=== PATIENT | female | born 1985 | race Caucasian/White ===

== ENCOUNTER 2018-02-22 16:04 | Emergency (ER) | END 2018-02-22 17:48 | disposition left against medical advice (07) ==

== ENCOUNTER 2018-03-08 08:46 | Emergency (ER) | END 2018-03-08 10:16 | disposition home or self-care (01) ==

== ENCOUNTER 2018-09-06 03:23 | Emergency (ER) | payer SELFPAY ==
[~2018-09-06] VITALS: Wt 58.7 kg
[~2018-09-06 03:23] MED LIST: BEN50 PO; DIPH25CA6 PO; FER325 PO; FOLI-49 PO; HYDR4TAB PO; HYDR500C3 PO; ONDA4TAB8 PO; QUET400T PO; SERT-165 PO; SERT50TA6 PO; TRAZ-111 PO
[2018-09-06] MEDS ORDERED: SOD CHLORIDE 0.9% 1,000 ML IV STA (03:35)
[2018-09-06] MEDS ORDERED: HYDROmorphONE 1 MG/ML SYG IV STA (03:35)
[2018-09-06] MEDS ORDERED: ONDANSETRON 4 MG INJ IV STA (03:35)
[2018-09-06] MEDS ORDERED: ONDANSETRON (ODT) 4 MG TAB ODT ONE (03:46)
[2018-09-06] MEDS ORDERED: DIPHENHYDRAMINE 50 MG INJ IV ONE (04:00)
[2018-09-06] MEDS ORDERED: HYDROmorphONE 2 MG/ML SYG IM STA (04:36)
[2018-09-06 06:08] VITALS: BP 123/97; PULSE 92; RESP 18
--- NOTE | 2018-10-16 01:31 | ERD ---
ER Documentation Chief Complaint Chief Complaint SICKLE CELL PAIN X'S 3 DAYS HPI This is a 33-with sickle cell pain for the past 3 days. Pain is mild to moderate intensity. No chest pain. No fevers no chills. No other current complaints. ROS All systems reviewed and are negative except as per history of present illness. Medications Home Meds Active Scripts Promethazine Hcl* (Phenergan*) 25 Mg Tablet, 25 MG PO Q6 PRN for NAUSEA AND/OR VOMITING, #12 TAB Prov:IRENE NICOLAS DO 10/14/18 Ondansetron Hcl* (Zofran*) 4 Mg Tablet, 4 MG PO Q8H PRN for NAUSEA AND/OR VOMITING, #30 TAB Prov:LOUIS JOSEPH MD 07/30/18 Reported Medications Quetiapine Fumarate* (Seroquel*) 400 Mg Tablet, 400 MG PO BID, TAB 06/22/18 Sertraline Hcl* (Sertraline Hcl*) 100 Mg Tablet, 100 MG PO QAM, #30 TAB 06/19/18 Sertraline Hcl* (Sertraline Hcl*) 50 Mg Tablet, 50 MG PO QPM, #30 TAB 06/19/18 Hydromorphone Hcl* (Hydromorphone Hcl*) 4 Mg Tablet, 4 MG PO Q4H PRN for PAIN, TAB 06/19/18 Diphenhydramine Hcl* (Benadryl*) 50 Mg Cap, 50 MG PO Q6 PRN for ITCHING, CAP 06/19/18 Folic Acid* (Folic Acid*) 1 Mg Tablet, 1 MG PO DAILY, TAB 06/19/18 Trazodone Hcl* (Trazodone Hcl*) 50 Mg Tablet, 50 MG PO QHS, #60 TAB 03/08/18 Quetiapine Fumarate* (Seroquel*) 400 Mg Tablet, 400 MG PO BID, TAB 03/08/18 Diphenhydramine Hcl* (Diphenhydramine Hcl*) 25 Mg Capsule, 25 MG PO QHS PRN for SLEEP, CAP 03/08/18 Ferrous Sulfate* (Ferrous Sulfate*) 325 Mg Tabec, 325 MG PO DAILY, TAB 03/08/18 Folic Acid* (Folic Acid*) 1 Mg Tablet, 1 MG PO DAILY, TAB 03/08/18 Hydroxyurea* (Hydroxyurea*) 500 Mg Capsule, 500 MG PO BID, CAP 03/08/18 Allergies Allergies: Coded Allergies: ketorolac (Verified Allergy, Unknown, 09/16/18) metoclopramide (Verified Allergy, Unknown, 09/16/18) morphine (Verified Allergy, Unknown, 09/16/18) prochlorperazine (Verified Allergy, Unknown, 09/16/18) haloperidol (Unverified Adverse Reaction, Unknown, 09/16/18) PMhx/Soc History of Surgery: Yes (HX APPENDECTOMY,OVARIAN CYST SX,PARTIAL SPLEENECTOMY) Anesthesia Reaction: No Hx Neurological Disorder: No Hx Respiratory Disorders: No Hx Cardiac Disorders: No Hx Psychiatric Problems: No Hx Miscellaneous Medical Probl: Yes (SICKLE CELL ) Hx Alcohol Use: No Hx Substance Use: No Hx Tobacco Use: Yes Smoking Status: Current some day smoker Physical Exam Physical Exam Const: No acute distress Head: Atraumatic Eyes: Normal Conjunctiva ENT: Normal External Ears, Nose and Mouth. Neck: Full range of motion. No meningismus. Resp: Clear to auscultation bilaterally Cardio: Regular rate and rhythm, no murmurs Abd: Soft, non tender, non distended. Normal bowel sounds Skin: No petechiae or rashes Back: No midline or flank tenderness Ext: No cyanosis, or edema Neur: Awake and alert Psych: Normal Mood and Affect Results 24 hrs Laboratory Tests Test 09/06/18 04:08 White Blood Count 6.2 10^3/ul Red Blood Count 3.73 10^6/ul Hemoglobin 8.2 g/dl Hematocrit 27.9 % Mean Corpuscular Volume 74.8 fl Mean Corpuscular Hemoglobin 22.0 pg Mean Corpuscular Hemoglobin Concent 29.4 g/dl Red Cell Distribution Width 16.1 % Platelet Count 314 10^3/UL Mean Platelet Volume 10.0 fl Immature Granulocytes % 0.200 % Neutrophils % 47.3 % Lymphocytes % 43.1 % Monocytes % 5.9 % Eosinophils % 2.9 % Basophils % 0.6 % Nucleated Red Blood Cells % 0.0 /100WBC Immature Granulocytes # 0.010 10^3/ul Neutrophils # 2.9 10^3/ul Lymphocytes # 2.7 10^3/ul Monocytes # 0.4 10^3/ul Eosinophils # 0.2 10^3/ul Basophils # 0.0 10^3/ul Nucleated Red Blood Cells # 0.0 10^3/ul Absolute Reticulocyte Count 0.051 X10^6 Percent Reticulocyte Count 1.4 % Sodium Level 143 mmol/L Potassium Level 4.1 mmol/L Chloride Level 108 mmol/L Carbon Dioxide Level 25 mmol/L Anion Gap 10 Blood Urea Nitrogen 16 mg/dl Creatinine 0.84 mg/dl Est Glomerular Filtrat Rate mL/min > 60 mL/min Glucose Level 91 mg/dl Calcium Level 9.2 mg/dl Total Bilirubin 0.3 mg/dl Direct Bilirubin 0.00 mg/dl Indirect Bilirubin 0.3 mg/dl Aspartate Amino Transf (AST/SGOT) 44 IU/L Alanine Aminotransferase (ALT/SGPT) 16 IU/L Alkaline Phosphatase 85 IU/L Total Protein 7.5 g/dl Albumin 4.2 g/dl Globulin 3.30 g/dl Albumin/Globulin Ratio 1.27 Lipase 147 U/L Current Medications Medications Dose Sig/Javon Start Time Status Last (Trade) Ordered Route PRN Stop Time Admin Dose Reason Admin Sodium 1,000 ml @ Q1H STAT 09/06/18 DC Chloride 1,000 mls/hr IV 03:35 09/06/18 04:34 1 mg ONCE STAT 09/06/18 DC 09/06/18 Hydromorphone IV 03:35 03:49 HCl 09/06/18 03:38 (Dilaudid) Ondansetron 4 mg ONCE STAT 09/06/18 DC 09/06/18 HCl (Zofran IV 03:35 03:49 Inj) 09/06/18 03:38 25 mg ONCE ONCE 09/06/18 DC 09/06/18 Diphenhydrami IV 04:00 03:49 ne HCl 09/06/18 04:01 (Benadryl) Ondansetron 4 mg STK-MED 09/06/18 DC HCl (Zofran ONCE ODT 03:46 Odt) 09/06/18 03:47 2 mg ONCE STAT 09/06/18 DC 09/06/18 Hydromorphone IM 04:36 04:47 HCl 09/06/18 04:37 (Dilaudid) Procedures/MDM Medical decision make: 33 female reactivation of sickle cell pain. Patient has been treated with pain medication and fluids here. Good resolution of symptomology. Patient will be discharged home. Departure Diagnosis: Primary Impression: Pain Additional Impression: Sickle cell pain crisis Condition: Stable Patient Instructions: Sickle Cell Pain Crisis MICHELLE SWARTZ Oct 16, 2018 01:31
== END 2018-09-06 06:30 | disposition home or self-care (01) ==
LOC: EDBD → MERGE 03:23 → E/R 03:23
DX: D57.00 Hb-SS disease with crisis, unspecified (principal); F17.210 Nicotine dependence, cigarettes, uncomplicated
CPT/HCPCS: 36415; 80053; 83690; 85025; 85045; 96372; 96374; 96375; 99284; J1170; J1200; J2405; J7030

== ENCOUNTER 2018-09-16 05:16 | Emergency (ER) | payer SELFPAY ==
[~2018-09-16] VITALS: Ht 157.5 cm; Wt 59.1 kg
[2018-09-16 05:18] VITALS: Ht 157.5 cm; Wt 59.1 kg
[2018-09-16] MEDS ORDERED: ONDANSETRON (ODT) 4 MG TAB ODT STA ×2 (06:14→08:02)
[2018-09-16] MEDS ORDERED: HYDROmorphONE 2 MG/ML SYG IM STA ×2 (06:14→08:02)
[2018-09-16] MEDS ORDERED: DIPHENHYDRAMINE 50 MG INJ IM ONE ×2 (06:30→08:30)
--- NOTE | 2018-09-16 07:15 | ERD ---
ER Documentation Chief Complaint Chief Complaint Pt reports she is in Sickle Cell Crisis x 1 week, worse last 2 days HPI This is a 31-year-old female with a known history of sickle cell disease. The patient indicates for the past 48 hours she is been having diffuse joint pain mostly in her hips lower and upper extremities. She denies any chest pain. She has no shortness of breath at rest or exertion. The patient indicates that her sickle cell crisis often gets worsened with cold weather. Given that it started raining this morning she stated she is experiencing a sickle cell flareup. She had no fevers or shaking or chills. She denies any nausea or vomiting. She takes oral Dilaudid but indicated this did not improve her pain. ROS All systems reviewed and are negative except as per history of present illness. Medications Home Meds Active Scripts Ondansetron Hcl* (Zofran*) 4 Mg Tablet, 4 MG PO Q8H PRN for NAUSEA AND/OR VOMITING, #30 TAB Prov:LOUIS JOSEPH MD 07/30/18 Reported Medications Quetiapine Fumarate* (Seroquel*) 400 Mg Tablet, 400 MG PO BID, TAB 06/22/18 Sertraline Hcl* (Sertraline Hcl*) 100 Mg Tablet, 100 MG PO QAM, #30 TAB 06/19/18 Sertraline Hcl* (Sertraline Hcl*) 50 Mg Tablet, 50 MG PO QPM, #30 TAB 06/19/18 Hydromorphone Hcl* (Hydromorphone Hcl*) 4 Mg Tablet, 4 MG PO Q4H PRN for PAIN, TAB 06/19/18 Diphenhydramine Hcl* (Benadryl*) 50 Mg Cap, 50 MG PO Q6 PRN for ITCHING, CAP 06/19/18 Folic Acid* (Folic Acid*) 1 Mg Tablet, 1 MG PO DAILY, TAB 06/19/18 Trazodone Hcl* (Trazodone Hcl*) 50 Mg Tablet, 50 MG PO QHS, #60 TAB 03/08/18 Quetiapine Fumarate* (Seroquel*) 400 Mg Tablet, 400 MG PO BID, TAB 03/08/18 Diphenhydramine Hcl* (Diphenhydramine Hcl*) 25 Mg Capsule, 25 MG PO QHS PRN for SLEEP, CAP 11/15/18 Ferrous Sulfate* (Ferrous Sulfate*) 325 Mg Tabec, 325 MG PO DAILY, TAB 03/08/18 Folic Acid* (Folic Acid*) 1 Mg Tablet, 1 MG PO DAILY, TAB 03/08/18 Hydroxyurea* (Hydroxyurea*) 500 Mg Capsule, 500 MG PO BID, CAP 03/08/18 Allergies Allergies: Coded Allergies: ketorolac (Verified Allergy, Unknown, 09/16/18) metoclopramide (Verified Allergy, Unknown, 09/16/18) morphine (Verified Allergy, Unknown, 09/16/18) prochlorperazine (Verified Allergy, Unknown, 09/16/18) haloperidol (Unverified Adverse Reaction, Unknown, 09/16/18) PMhx/Soc History of Surgery: Yes (HX APPENDECTOMY,OVARIAN CYST SX,PARTIAL SPLEENECTOMY) Anesthesia Reaction: No Hx Neurological Disorder: No Hx Respiratory Disorders: No Hx Cardiac Disorders: No Hx Psychiatric Problems: No Hx Miscellaneous Medical Probl: Yes (SICKLE CELL ) Hx Alcohol Use: No Hx Substance Use: No Hx Tobacco Use: Yes Smoking Status: Never smoker Physical Exam Vitals Vital Signs Date Temp Pulse Resp B/P (MAP) Pulse Ox O2 O2 Flow FiO2 Time Delivery Rate 09/16/18 98.6 72 16 132/78 100 Room Air 06:15 (96) 09/16/18 98.6 77 16 138/85 100 05:18 (102) Physical Exam Constitutional:Well-developed. Well-nourished. HEENT:Normocephalic. Atraumatic.Pupils were equal round reactive to light. Moist mucous membranes.No tonsillar exudates. Foreign bodies present in both the left and right ear and therefore unable to visualize tympanic membrane Neck: No nuchal rigidity. No lymphadenopathy. No posterior cervical spine tenderness or step-offs. Respiratory: Not using accessory muscles of respiration.Lungs were clear to auscultation bilaterally. No rhonchi. No rales. No wheezing. Cardiovascular: Regular rate regular rhythm.No murmurs. No rubs were appreciated .S1, S2 normal. Distal pulses are palpable 2+ bilaterally. GI: Abdomen was soft. Nontender. Non Distended. No pulsatile abdominal masses or bruits. No rebound. No guarding. Bowel sounds were present and normal. Muscle skeletal: Full range of motion of both the upper and lower extremities bilaterally.Normal muscle tone.No assymetrical calf tenderness or swelling. Skin: No petechia, no purpura. No lesions on the palms or the soles of the feet. No maculopapular rash. NEURO: Patient was alert, awake, orientated x3.No facial droop. Gait observed and normal with no ataxia.Speech had regular rate and rhythm. No focal neurological deficits. Result Diagram: 09/16/18 0651 09/16/18 0651 Results 24 hrs Laboratory Tests Test 09/16/18 06:51 White Blood Count 5.3 10^3/ul Red Blood Count 3.52 10^6/ul Hemoglobin 7.7 g/dl Hematocrit 26.5 % Mean Corpuscular Volume 75.3 fl Mean Corpuscular Hemoglobin 21.9 pg Mean Corpuscular Hemoglobin Concent 29.1 g/dl Red Cell Distribution Width 16.1 % Platelet Count 301 10^3/UL Mean Platelet Volume 10.1 fl Immature Granulocytes % 0.000 % Neutrophils % 35.5 % Lymphocytes % 53.9 % Monocytes % 7.4 % Eosinophils % 2.8 % Basophils % 0.4 % Nucleated Red Blood Cells % 0.0 /100WBC Immature Granulocytes # 0.000 10^3/ul Neutrophils # 1.9 10^3/ul Lymphocytes # 2.8 10^3/ul Monocytes # 0.4 10^3/ul Eosinophils # 0.2 10^3/ul Basophils # 0.0 10^3/ul Nucleated Red Blood Cells # 0.0 10^3/ul Absolute Reticulocyte Count 0.064 X10^6 Percent Reticulocyte Count 1.8 % Sodium Level 141 mmol/L Potassium Level 4.2 mmol/L Chloride Level 108 mmol/L Carbon Dioxide Level 27 mmol/L Anion Gap 6 Blood Urea Nitrogen 15 mg/dl Creatinine 0.83 mg/dl Est Glomerular Filtrat Rate mL/min > 60 mL/min Glucose Level 80 mg/dl Calcium Level 8.9 mg/dl Total Bilirubin 0.3 mg/dl Direct Bilirubin 0.00 mg/dl Indirect Bilirubin 0.3 mg/dl Aspartate Amino Transf (AST/SGOT) 31 IU/L Alanine Aminotransferase (ALT/SGPT) 21 IU/L Alkaline Phosphatase 77 IU/L Total Protein 6.6 g/dl Albumin 3.5 g/dl Globulin 3.10 g/dl Albumin/Globulin Ratio 1.12 Current Medications Medications Dose Sig/Javon Start Time Status Last (Trade) Ordered Route PRN Stop Time Admin Dose Reason Admin 2 mg ONCE STAT 09/16/18 DC 09/16/18 Hydromorphone IM 06:14 06:33 HCl 09/16/18 06:16 (Dilaudid) 50 mg ONCE ONCE 09/16/18 DC 09/16/18 Diphenhydrami IM 06:30 06:33 ne HCl 09/16/18 06:31 (Benadryl) Ondansetron 4 mg ONCE STAT 09/16/18 DC 09/16/18 HCl (Zofran ODT 06:14 06:32 Odt) 09/16/18 06:16 2 mg ONCE STAT 09/16/18 DC 09/16/18 Hydromorphone IM 08:02 08:09 HCl 09/16/18 08:04 (Dilaudid) Ondansetron 4 mg ONCE STAT 09/16/18 DC 09/16/18 HCl (Zofran ODT 08:02 08:08 Odt) 09/16/18 08:04 50 mg ONCE ONCE 09/16/18 DC 09/16/18 Diphenhydrami IM 08:30 08:08 ne HCl 09/16/18 08:31 (Benadryl) Procedures/MDM This is a 31-year-old female with a known history of sickle cell disease and multiple previous emergency room visits. The patient did not appear to be having an acute life-threatening crisis such as chest syndrome. I obtained ancillary laboratory work and the patient was not severely anemic requiring a blood transfusion. The patient has very poor peripheral IV access and therefore received intramuscular medication for analgesic control and oral Zofran. She required 2 doses of opiates. She stated her pain had improved. She has been compliant with all her medications which includes folic acid and hydroxyurea. I felt this was a vaso-occlusive crisis and that the patient could be safely discharged home given that her pain had improved. The patient was discharged home in fair condition. They were instructed to return to the emergency department at any time if there was any worsening of their condition. The pat ient stated they would follow up with their PCP in the next 24-48 hours to initiate a suitable medication regimen under the care of their PCP as well as to allow their PCP to monitor any drug reactions. The patient was discharged home with prescriptions after they gave informed consent to the new medication. They were also fully informed by myself on the adverse effects and adverse drug interactions in order to provide adequate safeguards to prevent possible adverse reactions to medications. Procedure note: Please note that this patient had foreign bodies present in both ears. Alligator forceps were used to remove tissue that the patient had stuck into both ears. She states she does this when she feels anxious. Afterwards is able to visualize the tympanic membranes. There is no bulging there is no erythremia and there is no blood present within the external auditory ear canal. The patient tolerated the procedure well. Departure Diagnosis: Primary Impression: Vaso-occlusive sickle cell crisis Additional Impressions: SUPERFICIAL FOREIGN BODY OF RIGHT EAR, INITIAL ENCOUNTER SUPERFICIAL FOREIGN BODY OF LEFT EAR, INITIAL ENCOUNTER Condition: TIKI Delatorre MD September 16, 2018 07:15
[2018-09-16 09:59] VITALS: BP 124/77; PULSE 71; RESP 16
== END 2018-09-16 10:02 | disposition home or self-care (01) ==
LOC: E/R 05:16
DX: D57.219 Sickle-cell/Hb-C disease with crisis, unspecified (principal)
CPT/HCPCS: 80053; 85025; 85045; J1170; J1200; 96372

== ENCOUNTER 2018-09-22 10:43 | Emergency (ER) | payer SELFPAY ==
[~2018-09-22] VITALS: Wt 75.0 kg
[2018-09-22 10:48] VITALS: BP 114/53; PULSE 80; RESP 18
[2018-09-22] MEDS ORDERED: HYDROCODONE/APAP (10/325) TAB PO ONE (11:00)
[2018-09-22] MEDS ORDERED: ONDANSETRON (ODT) 4 MG TAB ODT STA (11:00)
--- NOTE | 2018-09-22 13:07 | ERD ---
ER Documentation Chief Complaint Chief Complaint sickle cell pain, generalized , vomiting HPI Patient is a 33-year-old female who reports sickle cell pain for 1 week. She said that the pain is been off and on. She takes Dilaudid at home by mouth. She denies fevers. She had nausea and vomiting. Her pain is in the whole body. Upon review of old medical records the patient has multiple visits for pain complaints. Review of the emergency department information exchange system shows visits to 6 separate emergency departments for a total of 37 visits over the past 1 year. She does not currently have a primary doctor. ROS All systems reviewed and are negative except as per history of present illness. Medications Home Meds Active Scripts Ondansetron Hcl* (Zofran*) 4 Mg Tablet, 4 MG PO Q8H PRN for NAUSEA AND/OR VOMITING, #30 TAB Prov:LOUIS JOSEPH MD 07/30/18 Reported Medications Quetiapine Fumarate* (Seroquel*) 400 Mg Tablet, 400 MG PO BID, TAB 06/22/18 Sertraline Hcl* (Sertraline Hcl*) 100 Mg Tablet, 100 MG PO QAM, #30 TAB 06/19/18 Sertraline Hcl* (Sertraline Hcl*) 50 Mg Tablet, 50 MG PO QPM, #30 TAB 06/19/18 Hydromorphone Hcl* (Hydromorphone Hcl*) 4 Mg Tablet, 4 MG PO Q4H PRN for PAIN, TAB 06/19/18 Diphenhydramine Hcl* (Benadryl*) 50 Mg Cap, 50 MG PO Q6 PRN for ITCHING, CAP 06/19/18 Folic Acid* (Folic Acid*) 1 Mg Tablet, 1 MG PO DAILY, TAB 06/19/18 Trazodone Hcl* (Trazodone Hcl*) 50 Mg Tablet, 50 MG PO QHS, #60 TAB 03/08/18 Quetiapine Fumarate* (Seroquel*) 400 Mg Tablet, 400 MG PO BID, TAB 03/08/18 Diphenhydramine Hcl* (Diphenhydramine Hcl*) 25 Mg Capsule, 25 MG PO QHS PRN for SLEEP, CAP 03/08/18 Ferrous Sulfate* (Ferrous Sulfate*) 325 Mg Tabec, 325 MG PO DAILY, TAB 03/08/18 Folic Acid* (Folic Acid*) 1 Mg Tablet, 1 MG PO DAILY, TAB 03/08/18 Hydroxyurea* (Hydroxyurea*) 500 Mg Capsule, 500 MG PO BID, CAP 03/08/18 Allergies Allergies: Coded Allergies: ketorolac (Verified Allergy, Unknown, 09/16/18) metoclopramide (Verified Allergy, Unknown, 09/16/18) morphine (Verified Allergy, Unknown, 09/16/18) prochlorperazine (Verified Allergy, Unknown, 09/16/18) haloperidol (Unverified Adverse Reaction, Unknown, 09/16/18) PMhx/Soc History of Surgery: Yes (HX APPENDECTOMY,OVARIAN CYST SX,PARTIAL SPLEENECTOMY) Anesthesia Reaction: No Hx Neurological Disorder: No Hx Respiratory Disorders: No Hx Cardiac Disorders: No Hx Psychiatric Problems: No Hx Miscellaneous Medical Probl: Yes (SICKLE CELL ) Hx Alcohol Use: No Hx Substance Use: No Hx Tobacco Use: Yes Smoking Status: Current every day smoker FmHx Family History: diabetes Physical Exam Vitals Vital Signs Date Temp Pulse Resp B/P (MAP) Pulse Ox O2 O2 Flow FiO2 Time Delivery Rate 09/22/18 98.8 80 18 114/53 99 10:48 (73) Physical Exam Const: No acute distress Head: Atraumatic Eyes: Normal Conjunctiva ENT: Normal External Ears, Nose and Mouth. Neck: Full range of motion. No meningismus. Resp: Clear to auscultation bilaterally Cardio: Regular rate and rhythm, no murmurs Abd: Soft, non tender, non distended. Normal bowel sounds Skin: No petechiae or rashes Back: No midline or flank tenderness Ext: No cyanosis, or edema Neur: Awake and alert Psych: Normal Mood and Affect Results 24 hrs Current Medications Medications Dose Sig/Javno Start Time Status Last (Trade) Ordered Route PRN Stop Time Admin Dose Reason Admin 1 tab ONCE ONCE 09/22/18 DC 09/22/18 Acetaminophen PO 11:00 09/22/18 11:08 / 11:01 Hydrocodone Bitart (Iuka (10/325)) Ondansetron 4 mg ONCE STAT 09/22/18 DC 09/22/18 HCl (Zofran ODT 11:00 09/22/18 11:07 Odt) 11:01 Procedures/MDM Patient is a 33-year-old female who presents with a report of sickle cell pain. I do believe there is an element of pain seeking behavior. The patient will be given 1 dose of Iuka by mouth and will be discharged. I would not give her any narcotic medicines in prescription form. She will not get any IV or IM narcotics. She will be discharged and will need to follow-up with the local clinics that she does not currently have a primary doctor. She can return for any worsening symptoms. Departure Diagnosis: Primary Impression: Chronic pain Chronic pain type: other chronic pain Qualified Codes: G89.29 - Other chronic pain Condition: Fair Patient Instructions: Chronic Pain Referrals: [facility] YOU HAVE RECEIVED A MEDICAL SCREENING EXAM AND THE RESULTS INDICATE THAT YOU DO NOT HAVE A CONDITION THAT REQUIRES URGENT TREATMENT IN THE EMERGENCY DEPARTMENT. FURTHER EVALUATION AND TREATMENT OF YOUR CONDITION CAN WAIT UNTIL YOU ARE SEEN IN YOUR DOCTORS OFFICE WITHIN THE NEXT 1-2 DAYS. IT IS YOUR RESPONSIBILITY TO MAKE AN APPOINTMENT FOR FOLOW-UP CARE. IF YOU HAVE A PRIMARY DOCTOR --you should call your primary doctor and schedule an appointment IF YOU DO NOT HAVE A PRIMARY DOCTOR YOU CAN CALL OUR PHYSICIAN REFERRAL HOTLINE AT IF YOU CAN NOT AFFORD TO SEE A PHYSICIAN YOU CAN CHOSE FROM THE FOLLOWING [facility] [address] [facility]. [facility] [address] [facility] [facility] [address] [facility] [facility] [address] [facility]. [facility] [address] [facility]. [facility]. [address] Additional Instructions: Call your primary care doctor TOMORROW for an appointment during the next 1 WEEK.Tell the racing secretary and handicapper that you were referred from this facility.See the doctor sooner or return here if your condition worsens before your appointment time. ZACK ALBARRAN MD Sep 22, 2018 13:07
== END 2018-09-22 11:00 | disposition home or self-care (01) ==
LOC: E/R 10:43
DX: G89.29 Other chronic pain (principal); F17.210 Nicotine dependence, cigarettes, uncomplicated
CPT/HCPCS: 99283

== ENCOUNTER 2018-09-27 16:14 | Emergency (ER) | payer SELFPAY ==
[~2018-09-27] VITALS: Ht 157.5 cm; Wt 58.5 kg
[2018-09-27 16:30] VITALS: BP 110/69; PULSE 57; RESP 18; Ht 157.5 cm; Wt 58.5 kg
--- NOTE | 2018-09-27 17:13 | ERD ---
ER Documentation Chief Complaint Chief Complaint BODYACHES X 3 DAYS HPI Patient is a 33-year-old female with chronic pain who presents with pain. She says that she has body wide pain for the past 1 week off and on. She said that she was taking her Dilaudid p.o. Upon review of old medical records the patient has multiple visits to the ER since 2018 for pain. Review of the emergency department information exchange system shows visits to 6 separate emergency departments for a total of 38 visits over the past 1 year. Her primary doctor is Dr. Arthur. ROS All systems reviewed and are negative except as per history of present illness. Medications Home Meds Active Scripts Ondansetron Hcl* (Zofran*) 4 Mg Tablet, 4 MG PO Q8H PRN for NAUSEA AND/OR VOMITING, #30 TAB Prov:LOUIS JOSEPH MD 07/30/18 Reported Medications Quetiapine Fumarate* (Seroquel*) 400 Mg Tablet, 400 MG PO BID, TAB 06/22/18 Sertraline Hcl* (Sertraline Hcl*) 100 Mg Tablet, 100 MG PO QAM, #30 TAB 06/19/18 Sertraline Hcl* (Sertraline Hcl*) 50 Mg Tablet, 50 MG PO QPM, #30 TAB 06/19/18 Hydromorphone Hcl* (Hydromorphone Hcl*) 4 Mg Tablet, 4 MG PO Q4H PRN for PAIN, TAB 06/19/18 Diphenhydramine Hcl* (Benadryl*) 50 Mg Cap, 50 MG PO Q6 PRN for ITCHING, CAP 06/19/18 Folic Acid* (Folic Acid*) 1 Mg Tablet, 1 MG PO DAILY, TAB 06/19/18 Trazodone Hcl* (Trazodone Hcl*) 50 Mg Tablet, 50 MG PO QHS, #60 TAB 03/08/18 Quetiapine Fumarate* (Seroquel*) 400 Mg Tablet, 400 MG PO BID, TAB 03/08/18 Diphenhydramine Hcl* (Diphenhydramine Hcl*) 25 Mg Capsule, 25 MG PO QHS PRN for SLEEP, CAP 03/08/18 Ferrous Sulfate* (Ferrous Sulfate*) 325 Mg Tabec, 325 MG PO DAILY, TAB 03/08/18 Folic Acid* (Folic Acid*) 1 Mg Tablet, 1 MG PO DAILY, TAB 03/08/18 Hydroxyurea* (Hydroxyurea*) 500 Mg Capsule, 500 MG PO BID, CAP 03/08/18 Allergies Allergies: Coded Allergies: ketorolac (Verified Allergy, Unknown, 09/16/18) metoclopramide (Verified Allergy, Unknown, 09/16/18) morphine (Verified Allergy, Unknown, 09/16/18) prochlorperazine (Verified Allergy, Unknown, 09/16/18) haloperidol (Unverified Adverse Reaction, Unknown, 09/16/18) PMhx/Soc History of Surgery: Yes (HX APPENDECTOMY,OVARIAN CYST SX,PARTIAL SPLEENECTOMY) Anesthesia Reaction: No Hx Neurological Disorder: No Hx Respiratory Disorders: No Hx Cardiac Disorders: No Hx Psychiatric Problems: No Hx Miscellaneous Medical Probl: Yes (SICKLE CELL ) Hx Alcohol Use: No Hx Substance Use: No Hx Tobacco Use: Yes Smoking Status: Current some day smoker FmHx Family History: diabetes Physical Exam Vitals Vital Signs Date Temp Pulse Resp B/P (MAP) Pulse Ox O2 O2 Flow FiO2 Time Delivery Rate 09/27/18 98.2 57 18 110/69 99 16:30 (83) Physical Exam Const: No acute distress Head: Atraumatic Eyes: Normal Conjunctiva ENT: Normal External Ears, Nose and Mouth. Neck: Full range of motion. No meningismus. Resp: Clear to auscultation bilaterally Cardio: Regular rate and rhythm, no murmurs Abd: Soft, non tender, non distended. Normal bowel sounds Skin: No petechiae or rashes Back: No midline or flank tenderness Ext: No cyanosis, or edema Neur: Awake and alert Psych: Normal Mood and Affect Results 24 hrs Current Medications Medications Dose Sig/Javon Start Time Status Last (Trade) Ordered Route PRN Stop Time Admin Dose Reason Admin Ibuprofen 800 mg ONCE ONCE 09/27/18 (Motrin) PO 17:30 09/27/18 17:31 Procedures/MDM Patient is a 33-year-old female presents with acute on chronic pain. She was given ibuprofen. I would not give her narcotics in the emergency department and I do believe there is drug-seeking behavior. She is with 2 minor children in the emergency department as well. She will follow-up with her primary doctor. She can return for any worsening symptoms. She does have an [facility] care plan in the system with says that her sickle cell screen was negative. Departure Diagnosis: Primary Impression: Chronic pain Chronic pain type: chronic pain syndrome Qualified Codes: G89.4 - Chronic pain syndrome Condition: Fair Patient Instructions: Chronic Pain Referrals: Your doctor Additional Instructions: Call your primary care doctor TOMORROW for an appointment during the next 1-2 days.See the doctor sooner or return here if your condition worsens before your appointment time. ZACK ALBARRAN MD Sep 27, 2018 17:13
[2018-09-27] MEDS ORDERED: IBUPROFEN 800 MG TAB PO ONE (17:30)
== END 2018-09-27 17:19 | disposition home or self-care (01) ==
LOC: FTE 16:14
DX: G89.4 Chronic pain syndrome (principal); F17.210 Nicotine dependence, cigarettes, uncomplicated
CPT/HCPCS: 99282

== ENCOUNTER 2018-10-14 02:36 | Emergency (ER) | payer SELFPAY ==
[~2018-10-14] VITALS: Ht 165.1 cm; Wt 65.0 kg
[2018-10-14 02:41] VITALS: Ht 165.1 cm; Wt 65.0 kg
[2018-10-14] MEDS ORDERED: HYDROmorphONE 0.5 MG/0.5 ML SYG IM STA (03:00)
[2018-10-14] MEDS ORDERED: DIPHENHYDRAMINE 50 MG INJ IM ONE (03:00)
[2018-10-14] MEDS ORDERED: ONDANSETRON (ODT) 4 MG TAB ODT STA (03:00)
[2018-10-14] MEDS ORDERED: PROM25TA14 PO (03:03)
--- NOTE | 2018-10-14 03:05 | ERD ---
ER Documentation Chief Complaint Chief Complaint BIB SELF, CC: SICKLE CELL PAIN HPI This is a 33-year-old patient who has sickle cell disease he said that she is having an exacerbation of full body pain. She said that she is trying to take her pain meds but Zofran is not keeping it pills down so she is vomiting them up. She says that this happens that she has a crisis. No chest pain shortness of breath no abdominal pain no focal neurological complaints. The patient's been to different ERs over the past year over 38 times. She does not appear to be in any acute distress ROS All systems reviewed and are negative except as per history of present illness. Medications Home Meds Active Scripts Promethazine Hcl* (Phenergan*) 25 Mg Tablet, 25 MG PO Q6 PRN for NAUSEA AND/OR VOMITING, #12 TAB Prov:IRENE NICOLAS DO 10/14/18 Ondansetron Hcl* (Zofran*) 4 Mg Tablet, 4 MG PO Q8H PRN for NAUSEA AND/OR VOMITING, #30 TAB Prov:LOUIS JOSEPH MD 07/30/18 Reported Medications Quetiapine Fumarate* (Seroquel*) 400 Mg Tablet, 400 MG PO BID, TAB 06/22/18 Sertraline Hcl* (Sertraline Hcl*) 100 Mg Tablet, 100 MG PO QAM, #30 TAB 06/19/18 Sertraline Hcl* (Sertraline Hcl*) 50 Mg Tablet, 50 MG PO QPM, #30 TAB 06/19/18 Hydromorphone Hcl* (Hydromorphone Hcl*) 4 Mg Tablet, 4 MG PO Q4H PRN for PAIN, TAB 06/19/18 Diphenhydramine Hcl* (Benadryl*) 50 Mg Cap, 50 MG PO Q6 PRN for ITCHING, CAP 06/19/18 Folic Acid* (Folic Acid*) 1 Mg Tablet, 1 MG PO DAILY, TAB 06/19/18 Trazodone Hcl* (Trazodone Hcl*) 50 Mg Tablet, 50 MG PO QHS, #60 TAB 03/08/18 Quetiapine Fumarate* (Seroquel*) 400 Mg Tablet, 400 MG PO BID, TAB 03/08/18 Diphenhydramine Hcl* (Diphenhydramine Hcl*) 25 Mg Capsule, 25 MG PO QHS PRN for SLEEP, CAP 03/08/18 Ferrous Sulfate* (Ferrous Sulfate*) 325 Mg Tabec, 325 MG PO DAILY, TAB 03/08/18 Folic Acid* (Folic Acid*) 1 Mg Tablet, 1 MG PO DAILY, TAB 03/08/18 Hydroxyurea* (Hydroxyurea*) 500 Mg Capsule, 500 MG PO BID, CAP 03/08/18 Allergies Allergies: Coded Allergies: ketorolac (Verified Allergy, Unknown, 09/16/18) metoclopramide (Verified Allergy, Unknown, 09/16/18) morphine (Verified Allergy, Unknown, 09/16/18) prochlorperazine (Verified Allergy, Unknown, 09/16/18) haloperidol (Unverified Adverse Reaction, Unknown, 09/16/18) PMhx/Soc History of Surgery: Yes (HX APPENDECTOMY,OVARIAN CYST SX,PARTIAL SPLEENECTOMY) Anesthesia Reaction: No Hx Neurological Disorder: No Hx Respiratory Disorders: No Hx Cardiac Disorders: No Hx Psychiatric Problems: No Hx Miscellaneous Medical Probl: Yes (SICKLE CELL ) Hx Alcohol Use: No Hx Substance Use: No Hx Tobacco Use: Yes Smoking Status: Never smoker FmHx Family History: No coronary disease Physical Exam Vitals Vital Signs Date Temp Pulse Resp B/P (MAP) Pulse Ox O2 O2 Flow FiO2 Time Delivery Rate 10/14/18 98.3 88 19 126/65 100 02:41 (85) Physical Exam Const: Well-developed, well-nourished Head: Atraumatic, normocephalic Eyes: Normal Conjunctiva, PERRLA, EOMI, normal sclera, no nystagmus ENT: Normal External Ears, Nose and Mouth, moist mucus membranes. Neck: Full range of motion. No meningismus, no lymphadenopathy. Resp: Clear to auscultation bilaterally, no wheezing, rhonchi, rales Cardio: Regular rate and rhythm, no murmurs, S1 S2 present Abd: Soft, non tender x 4, non distended. Normal bowel sounds, no guarding or rebound, no pulsitile abdominal masses or bruits Skin: No petechiae or rashes, no ecchymosis , no maculopapular rash Back: No midline or flank tenderness Ext: No cyanosis, or edema, FROM x 4, normal inspection, neurovascularly intact x 4 Neur: Awake and alert, STR 5/5 x 4, sensation intact x 4, no focal fi ndings, cerebellum intact Psych: Normal Mood and Affect Procedures/MDM Patient will get some IM pain medications he will be discharged home with Phenergan at she saying that will work better for her to keep her pain meds down at home other than Zofran Departure Diagnosis: Primary Impression: Sickle cell pain crisis Condition: Stable Patient Instructions: Sickle Cell Pain Crisis Referrals: NO PRIMARY,CARE PHYSICIAN (PCP) IRENE NICOLAS DO Oct 14, 2018 03:05
[2018-10-14 03:16] VITALS: BP 106/74; PULSE 100; RESP 16
== END 2018-10-14 03:34 | disposition home or self-care (01) ==
LOC: E/R 02:36
DX: D57.1 Sickle-cell disease without crisis (principal); Z87.891 Personal history of nicotine dependence
CPT/HCPCS: 96372; 99284; J1170; J1200

== ENCOUNTER 2018-10-20 08:24 | Emergency (ER) | payer SELFPAY ==
[~2018-10-20] VITALS: Wt 59.0 kg
[~2018-10-20 08:24] MED LIST changes: +PROM25TA14 PO
[2018-10-20 08:26] VITALS: BP 116/83; PULSE 76; RESP 18; Wt 59.0 kg
[2018-10-20] MEDS ORDERED: HYDROmorphONE 2 MG/ML SYG IM STA (08:46)
--- NOTE | 2018-10-20 08:50 | ERD ---
ER Documentation Chief Complaint Chief Complaint chronic sicke cell pain on dilaudid po at home. no releif for 4 days. no cp HPI 33-year-old female presents the emergency department complaining of "sickle cell pain." Patient has a questional history of sickle cell disease. It should be noted that in her old records that there is a negative hemoglobinopathy screen in November 2017. She has multiple presentations for similar type complaints in cluding 2 previous visits in the last 6 days or so. During those visits, she had normal blood test other than her anemia, which was stable. Patient represents complaining of pain all over her body. She reports no fevers or chills. She reports no localizing discomfort. She reports no obvious reason for her flare. She states her symptoms are similar to her previous sickle cell pain crises. ROS All systems reviewed and are negative except as per history of present illness. Medications Home Meds Active Scripts Promethazine Hcl* (Phenergan*) 25 Mg Tablet, 25 MG PO Q6 PRN for NAUSEA AND/OR VOMITING, #12 TAB Prov:IRENE NICOLAS DO 10/14/18 Ondansetron Hcl* (Zofran*) 4 Mg Tablet, 4 MG PO Q8H PRN for NAUSEA AND/OR VOMITING, #30 TAB Prov:LOUIS JOSEPH MD 07/30/18 Reported Medications Quetiapine Fumarate* (Seroquel*) 400 Mg Tablet, 400 MG PO BID, TAB 06/22/18 Sertraline Hcl* (Sertraline Hcl*) 100 Mg Tablet, 100 MG PO QAM, #30 TAB 06/19/18 Sertraline Hcl* (Sertraline Hcl*) 50 Mg Tablet, 50 MG PO QPM, #30 TAB 06/19/18 Hydromorphone Hcl* (Hydromorphone Hcl*) 4 Mg Tablet, 4 MG PO Q4H PRN for PAIN, TAB 06/19/18 Diphenhydramine Hcl* (Benadryl*) 50 Mg Cap, 50 MG PO Q6 PRN for ITCHING, CAP 06/19/18 Folic Acid* (Folic Acid*) 1 Mg Tablet, 1 MG PO DAILY, TAB 06/19/18 Trazodone Hcl* (Trazodone Hcl*) 50 Mg Tablet, 50 MG PO QHS, #60 TAB 03/08/18 Quetiapine Fumarate* (Seroquel*) 400 Mg Tablet, 400 MG PO BID, TAB 03/08/18 Diphenhydramine Hcl* (Diphenhydramine Hcl*) 25 Mg Capsule, 25 MG PO QHS PRN for SLEEP, CAP 03/08/18 Ferrous Sulfate* (Ferrous Sulfate*) 325 Mg Tabec, 325 MG PO DAILY, TAB 03/08/18 Folic Acid* (Folic Acid*) 1 Mg Tablet, 1 MG PO DAILY, TAB 03/08/18 Hydroxyurea* (Hydroxyurea*) 500 Mg Capsule, 500 MG PO BID, CAP 03/08/18 Allergies Allergies: Coded Allergies: ketorolac (Verified Allergy, Unknown, 09/16/18) metoclopramide (Verified Allergy, Unknown, 09/16/18) morphine (Verified Allergy, Unknown, 09/16/18) prochlorperazine (Verified Allergy, Unknown, 09/16/18) haloperidol (Unverified Adverse Reaction, Unknown, 09/16/18) PMhx/Soc History of Surgery: Yes (HX APPENDECTOMY,OVARIAN CYST SX,PARTIAL SPLEENECTOMY) Anesthesia Reaction: No Hx Neurological Disorder: No Hx Respiratory Disorders: No Hx Cardiac Disorders: No Hx Psychiatric Problems: No Hx Miscellaneous Medical Probl: Yes (SICKLE CELL ) Hx Alcohol Use: No Hx Substance Use: No Hx Tobacco Use: Yes FmHx Noncontributory for chief complaint Physical Exam Vitals Vital Signs Date Temp Pulse Resp B/P (MAP) Pulse Ox O2 O2 Flow FiO2 Time Delivery Rate 10/20/18 98.0 76 18 116/83 98 08:26 (94) Physical Exam GENERAL: The patient is well developed and appropriate for usual state of health in no apparent distress HEENT: Pupils equal, round, and reactive to light. EOMI. There is no scleral icterus. NECK: C-spine is soft and supple, there is no meningismus. There is no cervical lymphadenopathy. LUNGS: Clear to auscultation bilaterally. There are no rales, wheezes or rhonchi. HEART: Regular rate and rhythm, no murmurs, clicks, rubs or gallops. ABDOMEN: Soft, non-tender, non-distended. There are bowel sounds in all four quadrants. No rebound or guarding. EXTREMITIES: There is no peripheral cyanosis or edema. No focal swelling or erythema. No specific evidence of joint swelling or infection NEURO: The patient moves all four extremities with 5/5 strength. Cranial nerves II - XII are intact. Normal gait. Alert and oriented SKIN: There is no apparent rash or petechiae. HEME/LYMPHATIC: There is no evidence of excessive bruising or lymphedema. PSYCHIATRIC: The patient does not appear anxious or depressed. Procedures/MDM Patient was taken to a room, seen and examined Medical decision makin-year-old female presents with what appears to be a flare of chronic pain. It is unclear to me based on her history that this is sickle cell related or simply chronic pain. Patient has received an injection of pain medication, but otherwise appears to be nontoxic, well-hydrated with no evidence of significant bacterial infection or other significant precipitating causes of the pain. Patient appears to be comfortable and nontoxic and appropriate for discharge at this time and referral back to her primary care doctor for pain control. Departure Diagnosis: Primary Impression: Pain Condition: Stable Patient Instructions: Chronic Pain Additional Instructions: Please see your doctor for further pain management MAXINE MARY Oct 20, 2018 08:50
== END 2018-10-20 12:28 | disposition home or self-care (01) ==
LOC: E/R 08:24
DX: D57.00 Hb-SS disease with crisis, unspecified (principal); Z87.891 Personal history of nicotine dependence
CPT/HCPCS: 96372; 99284; J1170

== ENCOUNTER 2018-10-29 18:58 | Emergency (ER) | payer SELFPAY ==
[~2018-10-29] VITALS: Ht 157.5 cm; Wt 60.4 kg
[2018-10-29 19:20] VITALS: Ht 157.5 cm; Wt 60.4 kg
[2018-10-29] MEDS ORDERED: ONDANSETRON (ODT) 4 MG TAB ODT STA (20:31)
[2018-10-29] MEDS ORDERED: HYDROmorphONE 2 MG/ML SYG IM STA (20:31)
--- NOTE | 2018-10-29 20:40 | ERD ---
ER Documentation Chief Complaint Chief Complaint Pt reports SCC and general body pain x 1 week HPI This is a 33-year-old female presents for generalized body pain. Patient is well-known to [facility], and I saw her in a previous visit, where she had been admitted for a pain crisis. At that time the patient stated that she had sickle cell disease, should be noted that in 2018 she tested negative for hemoglobinopathy. She presents with a pain episode similar to previous, she denies any chest pain or shortness of breath. On her last presentation, the patient had endorsed a history of not having any follow-up, and she was admitted for that reason, given her poor access care, she now has a primary care doctor, and is on hydroxyurea. She denies fever. ROS All systems reviewed and are negative except as per history of present illness. Medications Home Meds No Active Prescriptions or Reported Meds Allergies Allergies: Coded Allergies: ketorolac (Verified Allergy, Unknown, 09/16/18) metoclopramide (Verified Allergy, Unknown, 09/16/18) morphine (Verified Allergy, Unknown, 09/16/18) prochlorperazine (Verified Allergy, Unknown, 09/16/18) haloperidol (Unverified Adverse Reaction, Unknown, 09/16/18) PMhx/Soc History of Surgery: Yes (APPY, BILATERAL OVARIAN CYST REMOVAL, PARTIAL SPLEENECTOMY) Anesthesia Reaction: No Hx Neurological Disorder: No Hx Respiratory Disorders: No Hx Cardiac Disorders: No Hx Psychiatric Problems: No Hx Miscellaneous Medical Probl: Yes (SICKLE CELL ) Hx Alcohol Use: No Hx Substance Use: No Hx Tobacco Use: No Physical Exam Vitals Vital Signs Date Temp Pulse Resp B/P (MAP) Pulse Ox O2 O2 Flow FiO2 Time Delivery Rate 10/29/18 99.4 81 16 116/58 100 19:20 (77) Physical Exam Const: Well-developed, well-nourished, nontoxic Head: Atraumatic Eyes: Normal Conjunctiva ENT: Normal External Ears, Nose and Mouth. Neck: Full range of motion. No meningismus. Resp: Clear to auscultation bilaterally, no wheezes rales or rhonchi Cardio: Regular rate and rhythm, no murmurs Abd: Soft, non tender, non distended. Normal bowel sounds Skin: No petechiae or rashes Back: No midline or flank tenderness Ext: No cyanosis, or edema. Full range of motion of all extremities. Neur: Awake and alert Psych: Normal Mood and Affect Results 24 hrs Current Medications Medications Dose Sig/Javon Start Time Status Last (Trade) Ordered Route PRN Stop Time Admin Dose Reason Admin 2 mg ONCE STAT 10/29/18 DC Hydromorphone IM 20:31 10/29/18 HCl 20:32 (Dilaudid) Ondansetron 8 mg ONCE STAT 10/29/18 DC HCl (Zofran ODT 20:31 10/29/18 Odt) 20:32 25 mg ONCE ONCE 10/29/18 Diphenhydrami IM 21:00 10/29/18 ne HCl 21:01 (Benadryl) Procedures/MDM Is a 33-year-old female presents for evaluation of generalized body pain. Patient is afebrile and nontoxic-appearing, her pain is similar to prior pain crises, in the setting of chronic pain. She has no new symptoms, at this point, I do not feel that patient requires repeat labs, she is given a dose of pain medication here, and she is otherwise stable for discharge at discharge she was in no distress. Departure Diagnosis: Primary Impression: Pain Additional Impression: Sickle cell pain crisis Condition: Stable LOUIS ALARCON MD Oct 29, 2018 20:40
[2018-10-29] MEDS ORDERED: DIPHENHYDRAMINE 50 MG INJ IM ONE (21:00)
[2018-10-29 21:21] VITALS: BP 125/87; PULSE 78; RESP 16
== END 2018-10-29 21:23 | disposition home or self-care (01) ==
LOC: E/R 18:58
DX: D57.00 Hb-SS disease with crisis, unspecified (principal)
CPT/HCPCS: 96372; 99284; J1170; J1200

== ENCOUNTER 2018-11-28 08:41 | Emergency (ER) | payer SELFPAY ==
[~2018-11-28] VITALS: Wt 62.0 kg
[~2018-11-28 08:41] MED LIST changes: -DIPH25CA6 PO; -HYDR4TAB PO; +HYDR4TAB51 PO; +ONDA4TAB13 PO; -ONDA4TAB8 PO; -PROM25TA14 PO; -SERT-165 PO; +SERT100T PO; +SERT50TA PO; -SERT50TA6 PO; -TRAZ-111 PO
[2018-11-28 08:42] VITALS: BP 116/74; PULSE 92; RESP 18
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
== END 2018-11-28 09:57 | disposition home or self-care (01) ==
LOC: E/R 08:41
DX: M54.9 Dorsalgia, unspecified (principal); M79.606 Pain in leg, unspecified
CPT/HCPCS: 99283